=== PATIENT | female | born 1985 | race Caucasian/White ===

== ENCOUNTER → 2018-10-22 | Outpatient (CLI) | payer BC ==
[~2018-10-22] MED LIST: GADOBENATE 529MG/1ML 15ML VIAL IVP ONE
--- NOTE | 2018-10-22 10:46 | RADIOLOGY IMAGING REPORT ---
FACILITY: [facility] [place] PATIENT NAME: Candie Galvin : 1985 MR: [id number] V: [id number] EXAM DATE: ORDERING PHYSICIAN: [facility] TECHNOLOGIST: [facility] Patient: Candie Galvin : 1985 Visit/Account:[id number] Date of Sevice: 10/22/2018 EXAMINATION: MRI brain without IV contrast MRI brain with IV contrast, detailed IACs HISTORY: Chronic dizziness. COMPARISON: None. TECHNIQUE: Multi-planar, multi-sequence brain MRI was performed before and after IV gadolinium. Thin section imaging was performed in the axial and coronal planes centered on the IACs. CONTRAST: 14 mL of IV MultiHance gadolinium. FINDINGS: IAC detailed study: Brain stem: Negative. Cerebellopontine angles: Negative. IACs/CN VII and VIII: There are no filling defects in either internal auditory canal. The AICA loops are at the level of the porus acusticus bilaterally, but do not extend into the internal auditory ca nals. Inner ear: Negative. Middle ear: Negative. Mastoids/petrous apices: Negative. Rest of brain: Brain volume: Normal. Sagittal midline structures: Normal. Ventricles: Normal. Acute ischemic changes: No diffusion restriction present to suggest acute ischemia. Hemorrhage: None. Masses/edema: None. Enhancement: There is no abnormal enhancement in the posterior fossa. Cosby-white: Negative. White matter: 2 punctate T2/FLAIR hyperintense lesions in the subcortical deep white matter of the r ight frontal lobe. Vessels: Normal. Extra-axial: Normal. Calvarium/scalp: Negative. Skull base: Negative. Visualized sinuses/orbits: Negative. Visualized upper neck: Negative. IMPRESSION: 1. No posterior fossa mass lesion or enhancement. 2. AICA loops protrude to the level of the porus acusticus bilaterally, without extension into the i nternal auditory canals or obvious nerve root compression. 3. No acute infarct, hemorrhage or intracranial mass lesion. 4. 2 punctate white matter lesions in the right frontal lobe are nonspecific. Differential consider ations include the sequela of chronic migraine headaches, previous inflammation or trauma. Report Dictated By: Luna Garcia MD at 10/22/2018 10:34 AM Report E-Signed By: Luna Garcia MD at 10/22/2018 10:42 AM WSN:[id number]
== END ==
LOC: MRI 08:50
DX: H93.13 Tinnitus, bilateral (principal); H81.399 Other peripheral vertigo, unspecified ear; H90.11 Conductive hearing loss, unilateral, right ear, with unrestricted hearing on the contralateral side; H69.81 Other specified disorders of Eustachian tube, right ear; H61.23 Impacted cerumen, bilateral
CPT/HCPCS: 70553; A9577